=== PATIENT | female | born 1970 | race Caucasian/White ===

== ENCOUNTER 2023-11-03 09:00 | Outpatient (OUT) | payer OTHER, SELFPAY ==
[2023-11-03 09:32] LABS: Basophils Percent Auto 0.8 % (0.2-2.0); Eosinophils Absolute Auto 0.1 10^3/uL (0.0-0.7); Eosinophils Percent Auto 1.9 % (0.9-7.0); Hematocrit 43.6 % (36.0-48.0); Hemoglobin 14.5 g/dL (12.0-16.0); Immature Granulocytes Abs Auto 0.02 10^3/uL (0.00-0.03); Immature Granulocytes Pct Auto 0.4 % (0.0-0.5); Lymphocytes Absolute Auto 1.7 10^3/uL (1.2-3.8); Lymphocytes Percent Auto 31.2 % (20.5-60.0); Mean Corpuscular HGB Conc 33.3 g/dL (29.9-35.2); Mean Corpuscular Hemoglobin 31.1 pg (26.7-34.0); Mean Corpuscular Volume 93.6 fL (81.0-99.0); Mean Platelet Volume 10.6 fL (9.5-13.5); Monocytes Absolute Auto 0.5 10^3/uL (0.3-0.8); Monocytes Percent Auto 8.5 % (1.7-12.0); Neutrophils Percent Auto 57.2 % (43.0-75.0); Platelet Count 187 10^3/uL (150-450); Red Blood Count 4.66 10^6/uL (4.20-5.40); Red Cell Distribution Width 11.9 % (11.0-15.0); White Blood Count 5.3 10^3/uL (4.0-11.0)
[2023-11-03 10:19] LABS: Alanine Aminotransferase 21 U/L (14-59); Albumin Globulin Ratio 1.1; Alkaline Phosphatase 78 U/L (46-116); Anion Gap 13.7; Aspartate Amino Transferase 24 U/L (15-37); BUN Creatinine Ratio 29.6; Bilirubin Total 0.4 mg/dL (0.2-1.0); Calcium 9.4 mg/dL (8.5-10.1); Carbon Dioxide 28.7 mmol/L (21.0-32.0); Chloride 105 mmol/L (98-107); Chol HDL Ratio 2.2; Cholesterol 153 mg/dL (<=200); Estimated GFR (African America >60 (>=60); Estimated GFR (Non-African Ame >60 (>=60); Free T3 2.96 pg/mL (2.18-3.98); Globulin 3.6 g/dL; Glucose 74 mg/dL (74-106); HDL Cholesterol 68 mg/dL (40-60); Potassium 4.4 mmol/L (3.5-5.1); Sodium 143 mmol/L (136-145); Thyroid Stimulating Hormone 2.492 uIU/mL (0.358-3.740); Total Protein 7.6 g/dL (6.4-8.2); Triglycerides 58 mg/dL (<=150); VLDL CHOLESTEROL 11.6 mg/dL
--- NOTE | 2023-11-03 10:26 | MM_ITS ---
Patient Name: HENRIQUE MIMS MR#: [id number] : 1970 Exam Date: 11/03/2023 Ordering Doctor: DR Braxton Dillard . RADIOLOGY REPORT PROCEDURE: MM TOMOSYNTHESIS SCREENING BI COMPARISON: MG MAMM SCREEN 3D EULOGIO CAD, 05/13/2022. MG MAMM SCREEN 3D EULOGIO CAD, 04/05/2021. MG MAMM SCREEN EULOGIO W CAD, 06/15/2018. MG MAMM EULOGIO SCRN W CAD DIG, 12/31/2013. INDICATIONS: Screening Calculator Name NCI Breast Cancer Risk Assessment Tool 5 Year Breast Cancer Risk 1.20% Lifetime Breast Cancer Risk 8.50% Personal Breast Cancer No Personal Ovarian Cancer No Treatments None Family Cancers None LOCATION: [facility] BREAST COMPOSITION: The breasts are extremely dense, which lowers the sensitivity of mammography. FINDINGS: DIAGNOSTIC CATEGORY 1--NEGATIVE. RIGHT BREAST: No significant suspicious finding. No significant change has occurred. LEFT BREAST: No significant suspicious finding. No significant change has occurred. RECOMMENDATIONS: ROUTINE MAMMOGRAM AND CLINICAL EVALUATION IN 12 MONTHS. PLEASE NOTE: A NORMAL MAMMOGRAM DOES NOT EXCLUDE THE POSSIBILITY OF BREAST CANCER. A CLINICALLY SUSPICIOUS PALPABLE LUMP SHOULD BE BIOPSIED. Dictated by: Frank Lew M.D. on 11/03/2023 at 15:13 Approved by: Frank Lew M.D. on 11/03/2023 at 15:15
[2023-11-03 10:38] LABS: Estimated Average Glucose 108 mg/dL; Glycohemoglobin A1C 5.4 % (4.5-6.2)
[2023-11-05 14:07] LABS: Insulin 8.5 uIU/mL (2.6-24.9)
== END 2023-11-03 09:01 | disposition home or self-care (01) ==
LOC: MAMMO 09:00
PROVIDERS: PCP Family Medicine; Visit Provider Family Medicine
DX: Z00.00 Encounter for general adult medical examination without abnormal findings (principal); E78.5 Hyperlipidemia, unspecified; R73.09 Other abnormal glucose; Z12.31 Encounter for screening mammogram for malignant neoplasm of breast
CPT/HCPCS: 36415; 77063; 77067; 80053; 80061; 83036; 83525; 84436; 84443; 84481; 85025

== ENCOUNTER 2024-05-13 21:49 | Outpatient (REF) | payer OTHER, SELFPAY | END 2024-05-13 21:50 | disposition home or self-care (01) | LOC: LAB 21:49 | PROVIDERS: PCP Family Medicine; Visit Provider Obstetrics & Gynecology | DX: Z01.419 Encounter for gynecological examination (general) (routine) without abnormal findings (principal) | CPT/HCPCS: 87624; 88175 ==

== ENCOUNTER 2024-06-05 08:26 | Outpatient (OUT) | payer OTHER, SELFPAY ==
--- NOTE | 2024-06-05 08:28 | US_ITS ---
[address] [address] Patient Name: HENRIQUE MIMS MRN: [id number] date: 1970 Sex: F Assigned Patient Location: [facility] Current Patient Location: Accession/Order Number: [id number] Exam Date: 06/05/2024 08:28 Report Date: 06/06/2024 04:27 At the request of: KELIN RAWLS Procedure: US pelvis w/ transvaginal EXAMINATION: US pelvis w/ transvaginal HISTORY: UTERINE BLEEDING COMPARISON: No relevant comparison available. TECHNIQUE: Transabdominal and/or transvaginal sonographic examination was performed as indicated by examination type. FINDINGS: UTERUS: Normal size and appearance. Uterus size: 8.2 x 3.4 x 5.4 cm ENDOMETRIUM: Normal homogeneous appearance. Endometrial thickness: 5 mm RIGHT OVARY: Not seen. No suspicious adnexal findings. LEFT OVARY: Not seen. No suspicious adnexal findings. CUL-DE-SAC: Unremarkable. No significant free fluid. BLADDER: Unremarkable. OTHER: None. US/US pelvis w/ transvaginal IMPRESSION: 1. Unremarkable uterus and endometrium. 2. Neither ovary were seen. No suspicious adnexal findings. Electronically authenticated by: GHASSAN NEWTON Date: 06/06/2024 04:27
--- OUTSIDE RECORDS SUMMARY | 2024-06-05 08:49 | XMS_ITS | CCD ---
Author Organization [facility] Care Team Providers Care Paranormal Investigator Name Role Phone DR LIZ DILLARD Consulting Unavailable VISCI, DR SO Admitting Unavailable VISCI, DR SO Attending Unavailable DR LIZ DILLARD Primary Care Unavailable WEST, DR GENE Schmidt Consulting Unavailable Liz Dillard MD Primary Care Provider [phone] KELIN RAWLS Attending Unavailable KOLTON ORTEGA Attending Unavailable Medications Current Medications Medication Drug Class(es) Dates Sig (Normalized) Sig (Original) Collagen-Vitamin C-Biotin (Collagen 1500/C) 500-50-0.8 MG capsule (4 sources) Collagen-Vitamin C-Biotin (Collagen 1500/C) 500-50-0.8 MG capsule Collagen Active Multiple Vitamin (MULTIVITAMIN ADULT PO) (4 sources) Multiple Vitamin (MULTIVITAMIN ADULT PO) Multivitamin Adult Active Probiotic Product (PROBIOTIC BLEND PO) (4 sources) Probiotic Produc t (PROBIOTIC BLEND PO) Probiotic Active Completed/Discontinued Medications Medication Drug Class(es) Dates Sig (Normalized) Sig (Original) estradiol 0.5 mg oral tablet (3 sources) Estrogen Start: 11-29-2023 End: 05-13-2024 take 1 tablet by mouth once daily estradiol (Estrace) 0.5 MG tablet Indications: Follow-up encounter involving medication Take 1 tablet (0.5 mg) by mouth Daily for 30 doses 30 tablet 11 11/29/2023 05/13/2024 Discontinued (Therapy completed) Problems Problem Classification Problem Date Documented Date Episodic/Chronic Osteoporosis (2 sources) Postmenopausal osteoporosis; Translations: [Age-related osteoporosis without current pathological fracture] 05-13-2024 Chronic Other screening for suspected conditions (not mental disorders or infectious disease) (6 sources) Encounter for screening mammogram for malignant neoplasm of breast; Translations: [Patient encounter status] Onset: 05-13-2022 Episodic Results Test Name Value Interpretation Reference Range Facility IGP,APTIMA HPV,AGE GDLNon AGE GDLN ACOG TESTING Note . [facility] Comment on above: TESTS RESULT FLAG UN ITS REF RANGE LAB Clinician Provided Cytology Information Source.............Cervix;Endocervix No. of containers..01 ThinPrep Vial Age Algo ACOG Elvia... FLAG LEGEND: L-Low Normal,H-High Normal,LL-Alert Low,HH-Alert High <-Panic Low,>-Panic High,A-Abnormal,AA-Critical Abnormal Performed at: 01 =[address] [place] [address] Camila Casper MD, HPV APTIMA Negative Negative [facility] Comment on above: This nucleic acid am plification test detects fourteen high- risk HPV types (16,18,31,33,35,39,45,51,52,56,58,59,66,68) without differentiation. Performed at: =[address] [id number] Roving Hauler: Camila Casper MD, Phone: [phone] Performed at: [address] [id number] Roving Hauler: Camila Casper MD, Phone: [phone] IGP, APTIMA HPV, RFX 16/18,45 Note . [facility] Comment on above: TESTS RESULT FLAG UN ITS REF RANGE LAB DIAGNOSIS: 02 NEGATIVE FOR INTRAEPITHELIAL LESION OR MALIGNANCY. Specimen adequacy: 02 Satisfactory for evaluation. Endocervical and/or squamous metaplastic cells (endocervical component) are present. Performed by: 02 Minal Herrmann, Auto Air Conditioning Apprentice (ASCP) . 02 Note: Note 02 The Pap smear is a screening test designed to aid in the detection of premalignant and malignant conditions of the uterine cervix. It is not a diagnostic procedure and should not be used as the sole means of detecting cervical cancer. Both false-positive and false-negative reports do occur. Test Methodology: Note 02 This liquid based ThinPrep(R) pap test was screened with the use of an image guided system. HPV Genotype Reflex Note 02 Criteria not met, HPV Genotype not performed. FLAG LEGEND: L-Low Normal,H-High Normal,LL-Alert Low,HH-Alert High <-Panic Low,>-Panic High,A-Abnormal,AA-Critical Abnormal Performed at: [address] [address] Camila Casper MD, BRUSH-SPATULA CERVIX ENDOCERVIX [facility] Healthcar e MG MAMM SCREEN 3D EULOGIO CADon 05-13-2022 MG MAMM SCREEN 3D EULOGIO CAD Patient: GIOVANNA PEREZ Exam Date: 05/13/2022 : 1970 Gender:F Ordering : DR LIZ DILLARD . Admission #: [id number] Family : DR SARAY QUINTERO Order #: [id number] CLICK HERE TO VIEW EXAM RADIOLOGY REPORT PROCEDURE: MAMMOGRAM SCREENING 3D BILATERAL CAD COMPARISON: MG MAMM SCREEN EULOGIO W CAD, 06/15/2018. MG MAMM SCREEN 3D EULOGIO CAD, 04/05/2021. INDICATIONS: Screening mammography Calculator Name NCI Breast Cancer Risk Assessment Tool 5 Year Breast Cancer Risk 1.10% Lifetime Breast Cancer Risk 8.80% Personal Breast Cancer No Personal Ovarian Cancer No Treatments None Family Cancers None LOCATION: [facility] BREAST COMPOSITION: Extremely dense, which lowers the sensitivity of mammography. FINDINGS: DIAGNOSTIC CATEGORY 1--NEGATIVE. NO CHANGE FROM COMPARISON ASSESSMENT. Scattered benign-appearing calcifications are present. Scattered benign-appearing lymph nodes are present. RIGHT BREAST: No significant suspicious finding. LEFT BREAST: No significant suspicious finding. RECOMMENDATIONS: ROUTINE MAMMOGRAM AND CLINICAL EVALUATION IN 12 MONTHS. PLEASE NOTE: A NORMAL MAMMOGRAM DOES NOT EXCLUDE THE POSSIBILITY OF BREAST CANCER. A CLINICALLY SUSPICIOUS PALPABLE LUMP SHOULD BE BIOPSIED. Dictated by: Gene Cuello MD on 05/13/2022 at 11:37 Approved by: Gene Cuello MD on 05/13/2022 at 11:38 Normal [facility] Outside Colonoscopyon 2020 Outside Colonoscopy [id number] 0CD:127 Normal [facility] Lab Reportson 04-01-2021 Lab Reports [id number] 0CD:127 Normal [facility] Consent for Procedure/Surger yon 03-18-2021 Consent for Procedure/Surgery [id number] 0CD:127 Normal [facility] March 18, 2021 Liz Dillard, [address] [place] [address] [place] [address] Re: GIOVANNA PEREZ Date of : 1970 Thank you for your referral of Giovanna perez who was seen on consultation on Mar 16, 2021, for positive occult stool. Testing is planned for further evaluation. I have enclosed my consultation note for your review. I will be happy to follow Giovanna. Sincerely, Gomez Madsen MD General Surgery Normal [facility] Ambulatory Clinical Summaryo n 03-16-2021 Ambulatory Clinical Summary {[id number] }[id number] Normal [facility] Patient Educationon 03-16-20 21 Patient Education Radiology Colonoscopy, Adult, Care After This sheet gives you information about how to care for yourself after your procedure. Your health care provider may also give you more specific instructions. If you have problems or questions, contact your health care provider. What can I expect after the procedure? After the procedure, it is common to have: ? A small amount of blood in your stool for 24 hours after the procedure. ? Some gas. ? Mild abdominal cramping or bloating. Follow these instructions at home: General instructions ? For the first 24 hours after the procedure: ? Do not drive or use machinery. ? Do not sign important documents. ? Do not drink alcohol. ? Do your regular daily activities at a slower pace than normal. ? Eat soft, jvfk-by-qbbjdb foods. ? Take mqoh-mwf-uhsqhki or prescription medicines only as told by your health care provider. Relieving cramping and bloating ? Try walking around when you have cramps or feel bloated. ? Apply heat to your abdomen as told by your health care provider. Use a heat source that your health care provider recommends, such as a moist heat pack or a heating pad. ? Place a towel between your skin and the heat source. ? Leave the heat on for 20?30 minutes. ? Remove the heat if your skin turns bright red. This is especially important if you are unable to feel pain, heat, or cold. You may have a greater risk of getting burned. Eating and drinking ? Drink enough fluid to keep your urine pale yellow. ? Resume your normal diet as instructed by your health care provider. Avoid heavy or fried foods that are hard to digest. ? Avoid drinking alcohol for as long as instructed by your health care provider. Contact a health care provider if: ? You have blood in your stool 2?3 days after the procedure. Get help right away if: ? You have more than a small spotting of blood in your stool. ? You pass large blood clots in your stool. ? Your abdomen is swollen. ? You have nausea or vomiting. ? You have a fever. ? You have increasing abdominal pain that is not relieved with medicine. Summary ? After the procedure, it is common to have a small amount of blood in your stool. You may also have mild abdominal cramping and bloating. ? For the first 24 hours after the procedure, do not drive or use machinery, sign important documents, or drink alcohol. ? Contact your health care provider if you have a lot of blood in your stool, nausea or vomiting, a fever, or increased abdominal pain. This information is not intended to replace advice given to you by your health care provider. Make sure you discuss any questions you have with your health care provider. Document Released: 02/14/2005 Document Revised: 04/25/2018 Document Reviewed: 09/13/[address] Patient Education ? 2020 [employer] Colonoscopy, Adult A colonoscopy is an exam to look at the entire large intestine. During the exam, a lubricated, flexible tube that has a camera on the end of it is inserted into the anus and then passed into the rectum, colon, and other parts of the large intestine. You may have a colonoscopy as a part of normal colorectal screening or if you have certain symptoms, such as: ? Lack of red blood cells (anemia). ? Diarrhea that does not go away. ? Abdominal pain. ? Blood in your stool (feces). A colonoscopy can help screen for and diagnose medical problems, including: ? Tumors. ? Polyps. ? Inflammation. ? Areas of bleeding. Tell a health care provider about: ? Any allergies you have. ? All medicines you are taking, including vitamins, herbs, eye drops, creams, and cgqy-aky-qcvoaka medicines. ? Any problems you or family members have had with anesthetic medicines. ? Any blood disorders you have. ? Any surgeries you have had. ? Any medical conditions you have. ? Any problems you have had passing stool. What are the risks? Generally, this is a safe procedure. However, problems may occur, including: ? Bleeding. ? A tear in the intestine. ? A reaction to medicines given during the exam. ? Infection (rare). What happens before the procedure? Eating and drinking restrictions Follow instructions from your health care provider about eating and drinking, which may include: ? A few days before the procedure ? follow a low-fiber diet. Avoid nuts, seeds, dried fruit, raw fruits, and vegetables. ? 1?3 days before the procedure ? follow a clear liquid diet. Drink only clear liquids, such as clear broth or bouillon, black coffee or tea, clear juice, clear soft drinks or sports drinks, gelatin dessert, and popsicles. Avoid any liquids that contain red or purple dye. ? On the day of the procedure ? do not eat or drink anything starting 2 hours before the procedure, or within the time period that your health care provider recommends. Up to 2 hours before the procedure, you may continue to drink clear liquid (more content not included)... [place] Physician Referralon 021 Physician Referral [id number] CD:127 [place] Vital Signs Date Time Vital Sign Value Performing Clinician Whitney cardoso 05-13-2024 13:26-0400 Body mass index (BMI) [Ratio] 23.34 kg/m2 [employer] DO Work Phone: [facility] 05-13-2024 13:26-0400 Body weight 67.59 kg Kolton Shannon DO Work Phone: [facility] 05-13-2024 13:26-0400 Diastolic blood pressure 80 mm[Hg] KoltonTapFunder Work Phone: [facility] 05-13-2024 13:26-0400 Systolic blood pressure 130 mm[Hg] Kolton Shannon DO Work Phone: [facility] Healthcare Encounters Encounter Date Encounter Type Care Provider Facility Start: 05-13-2024 End: 05-13-2024 Bamboo flowsheet Kolton Shannon DO Work Phone: [facility] Start: 05-13-2024 End: 05-21-2024 Bamboo flowsheet Kolton Shannon DO Work Phone: [facility] Start: 05-13-2024 End: 05-21-2024 [facility] Result Encounter Kolton Ortega DO Work Phone: [facility] External Department Unsolicited Start: 05-13-2024 End: 05-13-2024 Patient encounter procedure Kolton Ortega DO Work Phone: [facility] Healthcare Start: 05-13-2024 End: 05-13-2024 Periodic preventive med est patient 40-64yrs Kolton Ortega DO Work Phone: [facility] Comment on above: Well woman exam with routine gynecological exam; Breast cancer screening by mammogram; Osteoporosis, post-menopausal (CMS/HCC) Start: 05-13-2024 End: 05-13-2024 ambulatory KOLTON ORTEGA Not Available Start: 11-29-2023 End: 11-29-2023 ambulatory KELIN RAWLS Not Available Start: 05-13-2022 End: 05-14-[address] LIZ DILLARD Facility:[facility]1 Procedures Date Procedure Procedure Detail Performing Clinician Start: 05-13-2024 IGP,APTIMA HPV,AGE GDLN Kolton Ortega DO Work Phone: Plan of Treatment Date Care Activity Detail Author Start: 05-13-2024 End: 05-13-2025 DXA Skeletal system Views for bone density DEXA bone density Imaging Routine Osteoporosis, post-menopausal (CMS/HCC) Expected: 05/13/2024 (Approximate), Expires: 05/13/2025 [facility] Comment on above: Expected: 05/13/2024 (Approximate), Expires: 05/13/2025 Start: 05-13-2024 End: 07-13-2025 MG Breast - bilateral Screening Bilateral screening mammogram Imaging Routine Breast cancer screening by mammogram Expected: 05/13/2024 (Approximate), Expires: 07/13/2025 [facility] Work Phone: Comment on above: Expected: 05/13/2024 (Approximate), Expires: 07/13/2025 Start: 05-13-2024 End: 05-13-2024 Patient encounter procedure 05/13/2024 1:00 PM EDT Office Visit [facility] [address] [place] [address] Kolton Ortega, DO [address] [place] [address] [place] [address] Arrived [facility] Comment on above: Arrived THIN PREP TIS PAP AN D HR HPV DNA THIN PREP TIS PAP AND HR HPV DNA Pathology and Cytology Routine Well woman exam with routine gynecological exam Ordered: 05/13/2024 [facility] Healthcare Comment on above: Ordered: 05/13/2024 Payers Date Payer Category Payer Private Health Insurance [employer] [id number] 1970 Unknown [id number] 1970 Unknown [id number] 1970 Unknown [id number] 1960 Unknown [id number] Social History Date Type Detail Facility [facility] Healthcare Start: 1970 Sex assigned at Not on file [facility] Gender identity Not on file [facility] Healthc are History of Present illness Narrative 05-13-2024 Tosha Cabral LPN - 05/13/2024 1:00 PM EDT Note Date & Type Note Facility 05-13-2024 History of Presen t illness Narrative Reason for Appointment: Patient ID: Giovanna Perez is a 53 y.o. female who presents for Gynecologic Exam Patient presents today for Annual Exam. MEDICATIONS Current Outpatient Medications Medication Instructions Collagen-Vitamin C-Biotin (Collagen 1500/C) 500-50-0.8 MG capsule Collagen Multiple Vitamin (MULTIVITAMIN ADULT PO) Multivitamin Adult Probiotic Product (PROBIOTIC BLEND PO) Probiotic ALLERGIES No Known Allergies PROBLEMS Active Ambulatory Problems Diagnosis Date Noted No Active Ambulatory Problems Resolved Ambulatory Problems Diagnosis Date Noted No Resolved Ambulatory Problems No Additional Past Medical History HISTORY PAST MEDICAL HISTORY SOCIAL HISTORY No past medical history on file. Social History Tobacco Use Smoking status: Not on file Smokeless tobacco: Not on file Substance Use Topics Alcohol use: Not on file Drug use: Not on file FAMILY HISTORY Family History Problem Relation Name Age of Onset Prostate cancer Brother Diabetes Other Hypertension Other SURGICAL HISTORY Past Surgical History: Procedure Laterality Date FOOT SURGERY REVIEW OF SYSTEMS Review of Systems: Review of Systems All other systems reviewed and are negative. OBJECTIVE Objective: Physical Exam Constitutional: Appearance: Normal appearance. She is well-developed. Genitourinary: Vulva normal. Breasts: Breasts are soft. Right: Normal. Left: Normal. Cardiovascular: Rate and Rhythm: Normal rate and regular rhythm. Pulmonary: Effort: Pulmonary effort is normal. Breath sounds: Normal breath sounds. Abdominal: General: Bowel sounds are normal. There is no distension. Palpations: Abdomen is soft. Tenderness: There is no abdominal tenderness. There is no guarding or rebound. Musculoskeletal: General: No swelling. Normal range of motion. Right lower leg: No edema. Left lower leg: No edema. Neurological: Mental Status: She is alert and oriented to person, place, and time. Skin: General: Skin is warm and dry. Psychiatric: Mood and Affect: Mood normal. Behavior: Behavior normal. Vitals and nursing note reviewed. Exam conducted with a extruder present. Vitals: Estimated body mass index is 23.34 kg/m as calculated from the following: Height as of 11/29/23: 5' 7 . Weight as of this encounter: 149 lb. BP: 130/80 No LMP recorded. Patient is postmenopausal. ASSESSMENT & PLAN ICD-10-CM 1. Well woman exam with routine gynecological exam Z01.419 THIN PREP TIS PAP AND HR HPV DNA 2. Breast cancer screening by mammogram Z12.31 Bilateral screening mammogram Bilateral screening mammogram 3. Osteoporosis, post-menopausal (CMS/HCC) M81.0 DEXA bone density Annual: Patient presents today for an annual exam. Patient states she is doing well and has no complaints. Pap was obtained without difficulty and patient given mammogram order and DEXA Scan order to have scheduled/obtained. Patient voiced she was having labs drawn through [facility] and she had pellets inserted. Patient will call office and inform PA what pellets were used. Orders Placed This Encounter Procedures Bilateral screening mammogram DEXA bone density Follow Up: Patient is to return in one year for annual unless needed otherwise. Documented by Tosha Cabral LPN on behalf of: Kolton Ortega DO documented in this encounter [facility] Clinical Note 03-16-2021 Note Date & Type Note Facility 03-16-2021 Note Chief Complaint referral for positive occult stool HPI Staff 50 year old female presents on consultation from Dr. Dillard for positive occult stool. Denies abdominal or rectal pain. No rectal bleeding. No change in bowel habits. No unintentional weight loss. No known family history of colon cancer. Previous colonoscopy completed 10-15 years ago for IBS, reported normal per patient. History of Present Illness 50 yo female referred for positive fecal occult blood; denies change in bms or gross blood in stools, no abdominal complaints; remote colonoscopy over 10 years ago, reportedly wnl; no previous abdominal operations; no asa or NSAID use, no SBE prophylaxis; no fmhx of GI malignancy or IBD. Review of Systems PHQ Score Initial Depression Screen Score: 0 ROS - Provider Constitutional: no fever, no sweats, no weight loss. Eyes: no glasses, no blurred vision, no visual loss. ENMT: no dentures, no hoarseness, no swallowing difficulties, no hearing loss, no ear infection(s), no nose bleeds. Cardiovascular: normal blood pressure, no chest pain, regular heartbeat, no heart murmur. Respiratory: no shortness of breath, no cough, no asthma, no wheezing. Gastrointestinal: no nausea, no vomiting, no diarrhea, no constipation, no blood in stool, no change in bowel habits, no abdominal pain, no hepatitis. Genitourinary: no kidney stones, no urine infection, no dysuria. Musculoskeletal: no pain, no weakness. Skin: no changing moles, no rash, no skin lumps. Neurologic: no seizures, no epilepsy, no headache. Psychiatric: no emotional or psychiatric problem. Heme/Lymph: no bleeding problems, no anemia, no blood clots, no transfusions. Allergy/Immunologic: no swollen lymph nodes/glands, no IV drug abuse. Other: Additional ROS info: Except as noted in the above Review of Systems and in the History of Present Illness, all other systems have been reviewed and are negative or noncontributory. Physical Exam Vitals & Measurements T: 36.6 ?C (Temporal Artery) HR: 72(Peripheral) RR: 16 BP: 130/96 HT: 170.18 cm HT: 170.2 cm WT: 67.9 kg WT: 67.9 kg BMI: 23.45 HEENT: normal conjunctiva, sclera clear, no scleral icterus, EOM intact, PERRLA, oral mucosa moist without lesions. Neck: trachea midline, no mass, symmetric, no thyromegaly or nodules, no adenopathy Respiratory: lungs CTA, respirations non labored. Cardiovascular: regular rate and rhythm, no murmur, no pedal edema or varicosities. Gastrointestinal: soft, non distended, no tenderness, no masses, no palpable hernias, diastasis recti no, no hepatosplenomegaly; normal bs Lymphatic: no cervical adenopathy, Musculoskeletal: normal gait, digits and nails without infection, nodes, cyanosis, clubbing. Skin: no rashes, no lesions, no ulcers, no subcutaneous nodules, induration. Psychiatric/Neuro: oriented to time, place, person, judgement normal, affect appropriate for age, insight intact, no focal deficits. Tests: labs reviewed, x-rays reviewed, review of old records completed, Discussed surgical options, risks, and possible complications with patient. Assessment/Plan 1. Positive fecal occult blood test (R19.5: Other fecal abnormalities) plan colonoscopy under anesthesia for further evaluation, informed consent obtained. Follow-up No qualifying data available Patient Education Colonoscopy, Adult, Care After Colonoscopy, Adult Problem List/Past Medical History Ongoing BMI 23.0-23.9, adult Positive fecal occult blood test Historical No qualifying data Procedure/Surgical History Cheilectomy (07/20/2018). Medications Acidophilus Probiotic Blend, 1 cap(s), Oral, Daily cetirizine 10 mg Tab, 10 mg= 1 tab(s), Oral, Daily Multivitamins and Minerals, 1 tab(s), Oral, Daily Allergies No Known Allergies No Known Medication Allergies Social History Alcohol - Denies Alcohol Use, 03/16/2021 Substance Abuse - Denies Substance Abuse, 03/16/2021 Tobacco Never (less than 100 in lifetime) Tobacco Use:. Never Smokeless Tobacco Use:., 03/16/2021 Family History Dementia: Father. Diabetes mellitus type 2: Sister and Brother. Hypertension: Mother, Sister and Brother. [facility] Comment on above: Result Comment: Elec tronically Signed By: MARINE LEW, Gomez Aguero\Date and Time Signed: 03/16/21 13:36 EDT Evaluation note Note Date & Type Note Facility Evaluation note Diagnosis Well woman exam with routine gynecological exam Routine gynecological examination Breast cancer screening by mammogram Osteoporosis, post-menopausal (CMS/HCC) Senile osteoporosis documented in this encounter [facility] Summary Purpose Family History No Family History Records FoundNo Family History Records FoundNo Family History Records Found Advance Directives No Advanced Directives Records FoundNo Advanced Directives Records FoundNo Advanced Directives Records Found Additional Source Comments INFORMATION SOURCE (unrecogn ized section and content) DATE CREATED AUTHOR 04/07/2021 [facility] DATE CREATED AUTHOR AUTHOR'S ORGANIZ ATION 05/18/2022 [facility] DATE CREATED AUTHOR AUTHOR'S ORGANIZ ATION 05/14/2024 [facility] dical Specialists EPIC Care Teams (unrecognized sec tion and content) Paranormal Investigator Relationship Specialty Start Date End Date Liz Dillard MD [address] [place] [address] PCP - General Family Medicine 10/30/23 Paranormal Investigator Relationship Specialty Start Date End Date Liz Dillard MD [address] [place] [address] PCP - General Family Medicine 10/30/23 Paranormal Investigator Relationship Specialty Start Date End Date Liz Dillard MD [address] [place] [address] PCP - General Family Medicine 10/30/23 Reason for Visit (unrecogniz ed section and content) Reason Comments Gynecologic Exam FOR RECORDS PERTAINING TO PATIENTS WHO ARE OR HAVE BEEN ENROLLED IN A CHEMICAL DEPENDENCY/SUBSTANCEABUSE PROGRAM, SOME INFORMATION MAY BE OMITTED. This clinical summary was aggregated from multiple sources. Caution should be exercised in using it in the provision of clinical care. This summary normalizes information from multiple sources, and as a consequence, information in this document may materially change the coding, format and clinical context of patient data. In addition, data may be omitted in some cases. CLINICAL DECISIONS SHOULD BE BASED ON THE PRIMARY CLINICAL RECORDS. [facility] [employer] [facility]. provides no warranty or guarantee of the accuracy or completeness of information in this document.
== END 2024-06-05 08:27 | disposition home or self-care (01) ==
LOC: NOMS 08:27
PROVIDERS: PCP Family Medicine; Visit Provider Physician Assistant
DX: N93.9 Abnormal uterine and vaginal bleeding, unspecified (principal)
CPT/HCPCS: 76830; 76856

== ENCOUNTER 2024-07-29 10:21 | Outpatient (REF) | payer OTHER, SELFPAY ==
--- OUTSIDE RECORDS SUMMARY | 2024-08-02 10:28 | XMS_ITS | CCD ---
Author Organization [facility] Care Team Providers Care Outreach And Education Social Worker Name Role Phone DR LIZ DILLARD Consulting Unavailable VISCJenny, DR SO Admitting Unavailable VISCJenny, DR SO Attending Unavailable DR LIZ DILLARD Primary Care Unavailable CLIO, DR GENE Schmidt Consulting Unavailable Liz Dillard MD Primary Care Provider [phone] Kolton Ortega DO Attending Provider Liz Dillard MD Primary Care Provider [phone] KELIN RAWLS Attending Unavailable KOLTON ORTEGA Attending Unavailable KOLTON ORTEGA Attending Unavailable KOLTON ORTEGA Attending Unavailable Medications Current Medications Medication Drug Class(es) Dates Sig (Normalized) Sig (Original) Collagen-Vitamin C-Biotin (Collagen 1500/C) 500-50-0.8 MG capsule (8 sources) Collagen-Vitamin C-Biotin (Collagen 1500/C) 500-50-0.8 MG capsule Collagen Active Multiple Vitamin (MULTIVITAMIN ADULT PO) (8 sources) Multiple Vitamin (MULTIVITAMIN ADULT PO) Multivitamin Adult Active Completed/Discontinued Medications Medication Drug Class(es) Dates Sig (Normalized) Sig (Original) estradiol 0.5 mg oral tablet (3 sources) Estrogen Start: 11-29-2023 End: 05-13-2024 take 1 tablet by mouth once daily estradiol (Estrace) 0.5 MG tablet Indications: Follow-up encounter involving medication Take 1 tablet (0.5 mg) by mouth Daily for 30 doses 30 tablet 11 11/29/2023 05/13/2024 Discontinued (Therapy completed) Probiotic Product (PROBIOTIC BLEND PO) (8 sources) End: 07-29-2024 Probiotic Product (PROBIOTIC BLEND PO) Probiotic 07/29/2024 Discontinued (Other) Probiotic Produc t (PROBIOTIC BLEND PO) Probiotic Active Problems Problem Classification Problem Date Documented Date Episodic/Chronic Administrative/social admission (2 sources) Patient encounter status; Translations: [Person consulting for explanation of examination or test findings] 06-10-2024 Episodic Osteoporosis (2 sources) Postmenopausal osteoporosis; Translations: [Age-related osteoporosis without current pathological fracture] 05-13-2024 Chronic Other female genital disorders (3 sources) Abnormal uterine bleeding; Translations: [Other specified abnormal uterine and vaginal bleeding] 06-10-2024 Chronic Other screening for suspected conditions (not mental disorders or infectious disease) (6 sources) Encounter for screening mammogram for malignant neoplasm of breast; Translations: [Patient encounter status] Onset: 05-13-2022 Episodic Results Test Name Value Interpretation Reference Range Facility Biopsy endometriumon 025 Tosha Cabral LPN 07/29/2024 2:18 PM Biopsy endometrium Date/Time: 07/29/2024 12:40 PM Performed by: Kolton Ortega DO Authorized by: Kolton Ortega DO Consent: Consent obtained: written Consent given by: patient Patient agrees, verbalizes understanding, and wants to proceed: yes Indications: Indications: abnormal uterine bleeding Procedure: A bimanual exam was performed: no Prepped with: none Tenaculum used: yes A local block was performed: no Local anesthetic: none Cervix dilated: yes Findings: Cervix: normal Specimen collected: specimen collected and sent to pathology Patient tolerance: tolerated well, no immediate complications [facility] e HCG ( test) Ql (U)O rdered By: Jaymie Hatch on 07-29-2024 Interpretation and review of laboratory results Normal [facility] [employer] Work Phone: Preg Test, Ur Negative Negative [facility] [employer] [facility] Work Phone: [employer] Work Phone: IGP,APTIMA HPV,AGE GDLNon AGE GDLN ACOG TESTING Note . [facility] Comment on above: TESTS RESULT FLAG UN ITS REF RANGE LAB Clinician Provided Cytology Information Source.............Cervix;Endocervix No. of containers..01 ThinPrep Vial Age Julia LASSITER Elvia... 29 FLAG LEGEND: L-Low Normal,H-High Normal,LL-Alert Low,HH-Alert High <-Panic Low,>-Panic High,A-Abnormal,AA-Critical Abnormal Performed at: 01 [address] [address] Camila Casper MD, HPV APTIMA Negative Negative [facility] Comment on above: This nucleic acid am plification test detects fourteen high- risk HPV types (16,18,31,33,35,39,45,51,52,56,58,59,66,68) without differentiation. Performed at: =[address] [id number] Mechanical Field Engineer: Camila Casper MD, Phone: [phone] Performed at: [address] [id number] Mechanical Field Engineer: Camila Casper MD, Phone: [phone] IGP, APTIMA HPV, RFX 16/18,45 Note . [facility] Comment on above: TESTS RESULT FLAG UN ITS REF RANGE LAB DIAGNOSIS: 02 NEGATIVE FOR INTRAEPITHELIAL LESION OR MALIGNANCY. Specimen adequacy: 02 Satisfactory for evaluation. Endocervical and/or squamous metaplastic cells (endocervical component) are present. Performed by: 02 Minal Herrmann, Exhibits Manager (ASC) . 02 Note: Note 02 The Pap [...] <-Panic Low,>-Panic High,A-Abnormal,AA-Critical Abnormal Performed at: [address] [address] Camila Casper MD, BRUSH-SPATULA CERVIX ENDOCERVIX [facility] MAMM SCREEN 3D EULOGIO CADon 05-13-2022 MG MAMM SCREEN 3D EULOGIO CAD Patient: GIOVANNA PEREZ Exam Date: 05/13/2022 : 1970 Gender:F Ordering : DR LIZ DILLARD . Admission #: [id number] Family : DR ASRAY QUINTERO Order #: [id number] CLICK HERE TO VIEW EXAM RADIOLOGY REPORT [...] Treatments None Family Cancers None LOCATION: [facility] BREAST COMPOSITION: Extremely dense, which lowers the [...] Cuello MD on 05/13/2022 at 11:38 Normal [facility] Outside Colonoscopyon 2020 Outside Colonoscopy [id number] .[id number]:127 [facility] Lab Reportson 04-01-2021 Lab Reports [id number] .[id number]:127 [facility] Consent for Procedure/Surger yon 03-18-2021 Consent for Procedure/Surgery [id number] .[id number]:127 [facility] Provider Letter FTon 03-18 Provider Letter [facility] [place] Liz Dillard, [facility] [place] [address] Re: GIOVANNA PEREZ Date of : 1970 Thank you for your referral of Giovanna perez who was seen on consultation on Mar 16, 2021, for positive occult stool. Testing is planned for further evaluation. I have enclosed my consultation note for your review. I will be happy to follow Giovanna. Sincerely, Gomez Madsen MD General Surgery [facility] Ambulatory Clinical Summaryo n 03-16-2021 Ambulatory Clinical Summary {[id number]}CD:[id number] [facility] Patient Educationon 03-16-20 Patient Education Radiology Colonoscopy, Adult, Care After [...] slower pace than normal. ? Eat soft, sfkv-sy-hjfsfn foods. ? Take xhfc-lut-xzqtosx or prescription medicines only as told by [...] 02/14/2005 Document Revised: 04/25/2018 Document Reviewed: 09/13/2016 [employer] Patient Education ? 2020 [employer] Colonoscopy, Adult A colonoscopy is an [...] including vitamins, herbs, eye drops, creams, and phwq-ztf-wpvlvos medicines. ? Any problems you or family [...] drink clear liquid (more content not included)... [facility] Physician Referralon 021 Physician Referral [id number]:127 [facility] Vital Signs Date Time Vital Sign Value Performing Clinician Faci lity 07-29-2024 12:01-0500 Body mass index (BMI) [Ratio] 23.93 kg/m2 Kolton Shannon DO Work Phone: [facility] 07-29-2024 12:01-0500 Body weight 69.31 kg Kolton Shannon DO Work Phone: [facility] 07-29-2024 12:01-0500 Diastolic blood pressure 78 mm[Hg] Kolton Shannon DO Work Phone: [facility] 07-29-2024 12:01-0500 Systolic blood pressure 124 mm[Hg] Kolton Shannon DO Work Phone: [facility] 05-13-2024 13:26-0400 Body mass index (BMI) [Ratio] 23.34 kg/m2 Kolton Shannon DO Work Phone: [facility] 05-13-2024 13:26-0400 Body weight 67.59 kg Kolton Shannon DO Work Phone: [facility] 05-13-2024 13:26-0400 Diastolic blood pressure 80 mm[Hg] Kolton Shannon DO Work Phone: [facility] 05-13-2024 13:26-0400 Systolic blood pressure 130 mm[Hg] Kolton Shannon DO Work Phone: [facility] Healthcare Encounters Encounter Date Encounter Type Care Provider Facility Start: 07-29-2024 End: 07-29-2024 Departed Referred Liz Dillard MD Work Phone: [facility] [place] Work Phone: Start: 07-29-2024 End: 07-29-2024 Patient encounter procedure Kolton Shannon DO Work Phone: [facility] Comment on above: Dysfunctional uterin e bleeding Start: 07-29-2024 End: 07-29-2024 ambulatory Liz Dillard MD Work Phone: [facility] Work Phone: Start: 06-10-2024 End: 06-10-2024 Office outpatient visit 15 minutes Kolton Shannon DO Work Phone: [facility] Comment on above: Encounter to discuss test results; Dysfunctional uterine bleeding Start: 06-10-2024 End: 06-10-2024 ambulatory KOLTON SHANNON Not Available Start: 06-10-2024 End: 06-10-2024 Bamboo flowsheet Kolton Shannon DO Work Phone: [facility] Start: 06-10-2024 End: 06-10-2024 Bamboo flowsheet Kolton Shannon DO Work Phone: [facility] Start: 05-13-2024 End: 05-13-2024 Bamboo flowsheet Kolton Shannon DO Work Phone: [facility] Start: 05-13-2024 End: 05-21-2024 Bamboo flowsheet Kolton Shannon DO Work Phone: [facility] Start: 05-13-2024 End: 05-21-2024 Clinisync Result Encounter Kolton Shannon DO Work Phone: [facility] Unsolicited Start: 05-13-2024 End: 05-13-2024 Patient encounter procedure Kolton Shannon DO Work Phone: [facility] Start: 05-13-2024 End: 05-13-2024 Periodic preventive med est patient 40-64yrs Kolton Shannon DO Work Phone: [facility] Comment on above: Well woman exam with routine gynecological exam; Breast cancer screening by mammogram; Osteoporosis, post-menopausal ([facility]) Start: 05-13-2024 End: 05-13-2024 ambulatory KOLTON SHANNON Not Available Start: 11-29-2023 End: 11-29-2023 ambulatory KELIN RAWLS Not Available Start: 05-13-2022 End: 05-14-[address] LIZ DILLARD Facility: Procedures Date Procedure Procedure Detail Performing Clinician Start: 07-29-2024 ENDOMETRIAL BIOPSY Core y Shannon DO Work Phone: Start: 07-29-2024 Urine test visual color cmprsn meths Kolton Shannon DO Work Phone: Start: 05-13-2024 IGP,APTIMA HPV,AGE GDLN Kolton Shannon DO Work Phone: Plan of Treatment Date Care Activity Detail Author Start: 07-29-2024 End: 07-29-2024 Patient encounter procedure 07/29/2024 11:30 AM EST Procedure Visit [facility] [address] [place] [id number] Kolton Ortega, DO [address] [place] [address] [facility] Start: 06-10-2024 End: 06-10-2024 Patient encounter procedure 06/10/2024 3:00 PM EST Office Visit [facility] [address] [place] [place] [phone] Kolton Ortega, DO [address] [place] [address] Arrived [facility] Comment on above: Arrived Start: 05-13-2024 End: 05-13-2025 DXA Skeletal system Views for bone density DEXA bone density Imaging Routine Osteoporosis, post-menopausal ([facility]) Expected: 05/13/2024 (Approximate), Expires: 05/13/2025 [facility] Comment on above: Expected: 05/13/2024 (Approximate), Expires: 05/13/2025 Start: 05-13-2024 End: 07-13-2025 MG Breast - bilateral Screening Bilateral screening mammogram Imaging Routine Breast cancer screening by mammogram Expected: 05/13/2024 (Approximate), Expires: 07/13/2025 [facility] Work Phone: Comment on above: Expected: 05/13/2024 (Approximate), Expires: 07/13/2025 Start: 05-13-2024 End: 05-13-2024 Patient encounter procedure 05/13/2024 1:00 PM EDT Office Visit [facility] [address] [place] [place] [address] Kolton Ortega DO [address] [place], [place] [id number] Arrived [facility] Comment on above: Arrived THIN PREP TIS PAP AN D HR HPV DNA THIN PREP TIS PAP AND HR HPV DNA Pathology and Cytology Routine Well woman exam with routine gynecological exam Ordered: 05/13/2024 [facility] Comment on above: Ordered: 05/13/2024 Payers Date Payer Category Payer Private Health Insurance [facility] ARE [id number] 1970 Unknown [id number] 1970 Unknown [id number] 1970 Unknown [id number] 1970 Unknown [id number] 1970 Unknown [id number] 1960 Unknown [id number] Social History Date Type Detail Facility Tobacco smoking status NHIS Tobacco smoking consumption unknown [facility] Start: 1970 Sex assigned at Not on file [facility] Gender identity Not on file [facility] Start: 07-31-2024 Sex Female (finding) [facility] Start: 1970 Sex Assigned At Female F [facility] History of Present illness Narrative 07-29-2024 Tosha Cabral LPN - 07/29/2024 11:30 AM EST Note Date & Type Note Facility 07-29-2024 History of Presen t illness Narrative Associated Order(s): Biopsy endometrium Pre-Procedure Diagnose(s): Dysfunctional uterine bleeding Post-Procedure Diagnose(s): Dysfunctional uterine bleeding Reason for Appointment: Patient ID: Giovanna Perez is a 53 y.o. female who presents for Endometrial Biopsy Patient presents today for a Endometrial Biopsy appointment. MEDICATIONS Current Outpatient Medications Medication Instructions Collagen-Vitamin C-Biotin (Collagen 1500/C) 500-50-0.8 MG capsule Collagen Multiple Vitamin (MULTIVITAMIN ADULT PO) Multivitamin Adult ALLERGIES No Known Allergies SURGICAL HISTORY Past Surgical History: Procedure Laterality Date FOOT SURGERY REVIEW OF SYSTEMS Review of Systems: Review of Systems Genitourinary: Positive for vaginal bleeding. All other systems reviewed and are negative. OBJECTIVE Objective: Physical Exam Constitutional: Appearance: Normal appearance. She is well-developed. Genitourinary: Vulva normal. Cardiovascular: Rate and Rhythm: Normal rate and [...] nursing note reviewed. Exam conducted with a earthmoving plant operator present. Vitals: Estimated body mass index is 23.93 kg/m as calculated from the following: Height as of 24: 5' 7 . Weight as of this encounter: 152 lb 12.8 oz. BP: 124/78 No LMP recorded. Patient is postmenopausal. ASSESSMENT & PLAN Assessment/Plan Encounter Diagnosis: ICD-10-CM 1. Dysfunctional uterine bleeding N93.8 Biopsy endometrium POCT , urine manually resulted Biopsy endometrium Date/Time: 07/29/2024 12:40 PM Performed by: Kolton Ortega DO Authorized by: Kolton Ortega DO Consent: Consent obtained: written Consent given by: patient Patient agrees, verbalizes understanding, and wants to proceed: yes Indications: Indications: abnormal uterine bleeding Procedure: A bimanual exam was performed: no Prepped with: none Tenaculum used: yes A local block was performed: no Local anesthetic: none Cervix dilated: yes Findings: Cervix: normal Specimen collected: specimen collected and sent to pathology Patient tolerance: tolerated well, no immediate complications EMBX: Patient was placed in dorsal lithotomy position with feet in stirrups. A sterile speculum was placed into the vagina and the cervix was visualized. The cervix was grasped with a single tooth tenaculum. The endometrial pipette was placed through the cervix into the uterus, endometrial curettage was performed and sampling was obtained, endometrial curettings were placed in formalin, and single tooth tenaculum was removed. Excellent hemostasis was assured. All instruments were removed from vagina. Follow Up: Patient is to return to clinic as directed and also for routine Pap appointment. Documented by Tosha Cabral LPN on behalf of: Kolton Ortega DO documented in this encounter [facility] History of Present illness Narrative 06-10-2024 Kolton Ortega DO - 06/10/2024 3:00 PM EST Note Date & Type Note Facility 06-10-2024 History of Presen t illness Narrative Reason for Appointment: Patient ID: Giovanna Perez is a 53 y.o. female who presents for Follow-up (Pt present today for a f/up visit to discuss US results. (Uterine bleeding)) Patient presents today for Acute Visit. Current Medications: has a current medication list which includes the following prescription(s): collagen 1500/c, multiple vitamin, and probiotic product. Medical History: Active Ambulatory Problems Diagnosis Date Noted No Active Ambulatory Problems Resolved Ambulatory Problems Diagnosis Date Noted No Resolved Ambulatory Problems No Additional Past Medical History Family History Problem Relation Name Age of Onset Prostate cancer Brother Diabetes Other Hypertension Other Social History Tobacco Use Smoking status: Not on file Smokeless tobacco: Not on file Substance Use Topics Alcohol use: Not on file Drug use: Not on file Past Surgical History: Procedure Laterality Date FOOT SURGERY No Known Allergies Review of Systems: Review of Systems All other systems reviewed and are negative. Objective Physical Exam Constitutional: Appearance: Normal appearance. She is well-developed. Cardiovascular: Rate and Rhythm: Normal rate and [...] nursing note reviewed. Exam conducted with a earthmoving plant operator present. Vitals: Estimated body mass index is 23.34 kg/m as calculated from the following: Height as of 11/29/23: 5' 7 . Weight as of 05/13/24: 149 lb. BP: No LMP recorded. Patient is postmenopausal. Assessment/Plan Encounter Diagnosis: ICD-10-CM 1. Encounter to discuss test results Z71.2 2. Dysfunctional uterine bleeding N93.8 Reviewed us and labs, discussed embx vs d&c hysteroscopy, discussed repeating us in future, pt elects to have embx, discussed estrogen and progesterone and not to do unopposed Documented by Kolton Ortega DO on behalf of: Kolton Ortega DO documented in this encounter [facility] History of Present illness Narrative 05-13-2024 Tosha [...] nursing note reviewed. Exam conducted with a earthmoving plant operator present. Vitals: Estimated body mass index is [...] mammogram Bilateral screening mammogram 3. Osteoporosis, post-menopausal ([facility]) M81.0 DEXA bone density Annual: Patient presents [...] Kolton Ortega DO documented in this encounter [facility] Clinical Note 03-16-2021 Note Date & Type [...] and Brother. Hypertension: Mother, Sister and Brother. [facility] Comment on above: Result Comment: Elec tronically Signed By: MARINE LEW, Gomez Aguero\Date and Time Signed: 03/16/21 13:36 EDT Evaluation note Note Date & Type Note Facility Evaluation note Diagnosis Well woman exam with routine gynecological exam Routine gynecological examination Breast cancer screening by mammogram Osteoporosis, post-menopausal ([facility]) Senile osteoporosis documented in this encounter [facility] Evaluation note Note Date & Type Note Facility Evaluation note Diagnosis Encounter to discuss test results Other specified counseling Dysfunctional uterine bleeding Other disorder of menstruation and other abnormal bleeding from female genital tract documented in this encounter [facility] Evaluation note Note Date & Type Note Facility Evaluation note Diagnosis Dysfunctional uterine bleeding Other disorder of menstruation and other abnormal bleeding from female genital tract documented in this encounter [facility] Evaluation note Note Date & Type Note Facility Evaluation note No assessment information availa [facility] Work Phone: Summary Purpose Family History No Family History Records FoundNo Family History Records FoundNo Family History Records Found Advance Directives No Advanced Directives Records Found Advance Directive Response Recorded Date/ Time Advance Directives No July 30, 2024 3:51pm Chief Complaint and Reason for Visit Chief Complaint Admit Date endo biopsy July 29, 2024 1 2:00pm Additional Source Comments INFORMATION SOURCE (unrecogn ized section and content) DATE CREATED AUTHOR 04/07/2021 [facility] DATE CREATED AUTHOR AUTHOR'S ORGANIZ ATION 05/18/2022 [facility] pital DATE CREATED AUTHOR AUTHOR'S ORGANIZ ATION 2024 [facility] dical Specialists [facility] Care Teams (unrecognized sec tion and content) Outreach And Education Social Worker Relationship Specialty Start Date End Date Liz Dillard MD [address] [place] [address] PCP - General Family Medicine 10/30/23 Outreach And Education Social Worker Relationship Specialty Start Date End Date Liz Dillard MD [address] [place] [address] PCP - General Family Medicine 10/30/23 Outreach And Education Social Worker Relationship Specialty Start Date End Date Liz Dillard MD [address] [place] [address] PCP - General Family Medicine 10/30/23 Outreach And Education Social Worker Relationship Specialty Start Date End Date Liz Dillard MD [address] [place] [address] PCP - General Family Medicine 10/30/23 Outreach And Education Social Worker Relationship Specialty Start Date End Date Liz Dillard MD [address] [place] [address] PCP - General Family Medicine 10/30/23 Outreach And Education Social Worker Relationship Specialty Start Date End Date Liz Dillard MD [address] [place] [address] PCP - General Family Medicine 10/30/23 Team Status: Active Member Role Status Dates Liz Dillard MD Primary Care Provider Active Team Status: Inactive Member Role Status Dates Kolton Ortega DO Attending Provider Active Start : July 29, 2024 End: July 29, 2024 Liz Dillard MD Primary Care Provider Active Start: July 29, 2024 End: July 29, 2024 Reason for Visit (unrecogniz ed section and content) Reason Comments Gynecologic Exam Reason Comments Follow-up Pt present today for a f/up visit to discuss US results. (Uterine bleeding) Reason Comments Endometrial Biopsy Goals (unrecognized section and content) Goals may be documented in a n alternate section FOR RECORDS PERTAINING TO PATIENTS WHO ARE [...] BE BASED ON THE PRIMARY CLINICAL RECORDS. [employer] provides no warranty or guarantee of the accuracy or completeness of information in this document.
== END 2024-07-29 10:22 | disposition home or self-care (01) ==
LOC: LAB 10:21
PROVIDERS: PCP Family Medicine; Visit Provider Obstetrics & Gynecology
DX: N93.9 Abnormal uterine and vaginal bleeding, unspecified (principal)
CPT/HCPCS: 88305

== ENCOUNTER 2025-02-17 10:12 | Outpatient (OUT) | payer OTHER, SELFPAY ==
--- NOTE | 2025-02-17 10:18 | MM_ITS ---
Patient Name: HENRIQUE MIMS MR#: [id number] : 1970 Exam Date: 02/17/2025 Ordering Doctor: DR KOLTON JEFFERSON . RADIOLOGY REPORT PROCEDURE: MM TOMOSYNTHESIS SCREENING BI COMPARISON: MM TOMOSYNTHESIS SCREENING BI, 11/03/2023. MG MAMM SCREEN 3D EULOGIO CAD, 05/13/2022. MG MAMM SCREEN 3D EULOGIO CAD, 04/05/2021. MG MAMM EULOGIO SCRN W CAD DIG, 12/31/2013. INDICATIONS: Screening Calculator Name NCI Breast Cancer Risk Assessment Tool 5 Year Breast Cancer Risk 1.20% Lifetime Breast Cancer Risk 8.30% Personal Breast Cancer No Personal Ovarian Cancer No Treatments None Family Cancers None LOCATION: [facility] BREAST COMPOSITION: The breasts are heterogeneously dense, which may obscure small masses. FINDINGS: DIAGNOSTIC CATEGORY 1--NEGATIVE. RIGHT BREAST: No significant suspicious finding. LEFT BREAST: No significant suspicious finding. RECOMMENDATIONS: ROUTINE MAMMOGRAM AND CLINICAL EVALUATION IN 12 MONTHS. PLEASE NOTE: A NORMAL MAMMOGRAM DOES NOT EXCLUDE THE POSSIBILITY OF BREAST CANCER. A CLINICALLY SUSPICIOUS PALPABLE LUMP SHOULD BE BIOPSIED. Dictated by: Ministerio Ambriz DO on 02/17/2025 at 15:25 Approved by: Ministerio Ambriz DO on 02/17/2025 at 15:27
--- OUTSIDE RECORDS SUMMARY | 2025-02-17 10:29 | XMS_ITS | CCD ---
Author Organization [facility] Care Team Providers Care Brim Edge Trimmer Name Role Phone DR LIZ DILLARD Consulting Unavailable LEON, DR SO Admitting Unavailable VISCJenny, DR SO Attending Unavailable SILVANA, DR HILL Primary Care Unavailable RANDOLPH, DR GENE Schmidt Consulting Unavailable Liz Dillard MD Primary Care Provider [phone] Kolton Ortega DO Attending Provider [phone] Liz Dillard MD Primary Care Provider [phone] KELIN RAWLS Attending Unavailable KOLTON ORTEGA Attending Unavailable KOLTON ORTEGA Attending Unavailable KOLTON ORTEGA Attending Unavailable Liz Dillard Primary Care Unavailable Kolton Ortega Attending Unavailable Kolton Ortega Admitting Unavailable Medications Current Medications Medication Drug Class(es) [...] uterine and vaginal bleeding] 06-10-2024 Chronic Other female genital disorders (1 source) Abnormal uterine and vaginal bleeding, unspecified; Translations: [Abnormal uterine and vaginal bleeding, unspecified] Onset: 07-29-2024 Chronic Other screening for suspected conditions (not [...] Patient tolerance: tolerated well, no immediate complications [facility] HCG ( test) Ql (U)O rdered By: Jaymie Hatch on 07-29-2024 Interpretation and review of laboratory results Normal [facility] Work Phone: Preg Test, Ur Negative Negative [facility] Health care Work Phone: [employer] Work Phone: Jarrett 07-29-2024 L - -------- Specimen: [id number] Received: 07/31/24 Status: LUIS Guidry Num: [id number] Spec Type: Surgical Subm Dr: Kolton Ortega Tissues: A Endometrium - Biopsy (ENDOMETRIAL BX) Procedures: HE/2, Gross/Micro L4 -------- Age/ Patient Sex Location Account Attending Physician -------- Giovanna Perez 53/F [place] [id number] Kolton Ortega -------- SPEC NUM: [id number] RECD: 07/31/24 STATUS: LUIS GUIDRY NUM: [id number] AIDEE: 07/29/24- SUBM DR: Kolton Ortega ENTERED: 07/31/[address]: Chet [place] SPEC TYPE: Surgical DEPT: RENÉ JULES ENTERED BY: [id number] RECV BY: [id number] ORDERED: HE/2, Gross/Micro L4 ORDERED: HE/2, Gross/Micro L4 Pathological Diagnosis Endometrium, biopsy: Superficial fragments of benign endometrium/endocervi x, unremarkable. Clinical Information Dysfunctional uterine bleeding Gross Description Part A is received in formalin labeled with the patients name, date of , and EMBX are phan-pink, focally erythematous, delicate tissue fragments, 0.7 x 0.5 x 0.1 cm in aggregate. The specimen is filtered and entirely submitted in a single cassette. (1, ns, BS A) CPT Codes 44557 -------- -------- Specimen: [id number] Received: 07/31/24 Status: LUIS Guidry Num: [id number] Spec Type: Surgical Subm Dr: Kolton Ortega Tissues: A Endometrium - Biopsy (ENDOMETRIAL BX) Procedures: HE/2, Gross/Micro L4 -------- Patient: MelviGiovanna [id number] (Continued) -------- Signed (signature on file) Efe Flores MD 08/01/24 1620 Normal [facility] IGP,APTIMA HPV,AGE GDLNon AGE GDLN ACOG TESTING Note . [facility] Comment on above: TESTS RESULT FLAG UN ITS REF RANGE LAB Clinician Provided Cytology Information Source.............Cervix;Endocervix No. of containers..01 ThinPrep Vial Age Algo ACOG Elvia... 30-65 01 FLAG LEGEND: L-Low Normal,H-High Normal,LL-Alert Low,HH-Alert High <-Panic Low,>-Panic High,A-Abnormal,AA-Critical Abnormal Performed at: 01 =[facility] [place] [address] Camila Casper MD, HPV APTIMA Negative Negative [facility] e Comment on above: This nucleic acid am plification test detects fourteen high- risk HPV types (16,18,31,33,35,39,45,51,52,56,58,59,66,68) without differentiation. Performed at: = - [address], [place] [id number] Secretary To The Vice President: Camila Casper MD, Phone: [phone] Performed at: - [address] [id number] Secretary To The Vice President: Camila Casper MD, Phone: [phone] IGP, APTIMA HPV, RFX 16/18,45 Note . [facility] Comment on above: TESTS RESULT FLAG UN ITS REF RANGE LAB DIAGNOSIS: 02 NEGATIVE FOR INTRAEPITHELIAL LESION OR MALIGNANCY. Specimen adequacy: 02 Satisfactory for evaluation. Endocervical and/or squamous metaplastic cells (endocervical component) are present. Performed by: 02 Minal Herrmann, Digital Field Service Technician (ASCP) . 02 Note: Note 02 The [...] Low,>-Panic High,A-Abnormal,AA-Critical Abnormal Performed at: 02 [facility] [address] [place] [address] Camila Casper MD, BRUSH-SPATULA CERVIX ENDOCERVIX [facility] MG MAMM SCREEN 3D EULOGIO CADon 05-13-2022 MG MAMM SCREEN 3D EULOGIO CAD Patient: GIOVANNA PEREZ Exam Date: 05/13/2022 : 1970 Gender:F Ordering : DR LIZ DILLARD . Admission #: [id number] Family : DR SARAY QUINTERO Order #: [id number] CLICK HERE TO VIEW EXAM RADIOLOGY REPORT [...] Family Cancers None LOCATION: [facility] BREAST COMPOSITION: Extremely dense, which [...] Cuello MD on 05/13/2022 at 11:38 Normal [facility] Outside Colonoscopyon 2020 Outside Colonoscopy [id number] .00CD:[address] [facility] Lab Reportson 04-01-2021 Lab Reports [id number] .00CD:[address] [facility] Consent for Procedure/Surger yon 03-18-2021 Consent for Procedure/Surgery [id number] .00CD:[address] [facility] Letter [facility] March 18, 2021 Liz Dillard, [address] [facility] [place] [address] [place] [address] Re: GIOVANNA PEREZ Date of : 1970 Thank you for your referral of Giovanna perez who was seen on consultation on Mar 16, 2021, for positive occult stool. Testing is planned for further evaluation. I have enclosed my consultation note for your review. I will be happy to follow Giovanna. Sincerely, Gomez Madsen MD General Surgery [facility] Ambulatory Clinical Summaryo 03-16-2021 Ambulatory Clinical Summary {[id number]}CD:[id number] Normal [facility] Patient Educationon 03-16-20 21 Patient [...] slower pace than normal. ? Eat soft, vfrc-wy-gduzjh foods. ? Take fzir-ole-ebuzpor or prescription medicines only as told by [...] 02/14/2005 Document Revised: 04/25/2018 Document Reviewed: 09/13/2016 [employer] Patient Education ? 2020 [employer] Colonoscopy, Adult A colonoscopy is an [...] including vitamins, herbs, eye drops, creams, and ynld-vfl-zdonewb medicines. ? Any problems you or family [...] drink clear liquid (more content not included)... Normal [facility] Physician Referralon 021 Physician Referral [id number]. 00CD:[address] [facility] Vital Signs Date Time Vital Sign Value Performing Clinician Whitney cardoso 07-29-2024 12:01-0500 Body mass index (BMI) [Ratio] 23.93 kg/m2 [employer] DO Work Phone: [facility] 07-29-2024 12:01-0500 Body weight 69.31 kg [employer] DO Work Phone: [facility] 07-29-2024 12:01-0500 Diastolic blood pressure 78 mm[Hg] [employer] DO Work Phone: [facility] 07-29-2024 12:01-0500 Systolic blood pressure 124 mm[Hg] Kolton Shannon DO Work Phone: [facility] 05-13-2024 13:26-0400 Body mass index (BMI) [Ratio] 23.34 kg/m2 Kolton Shannon DO Work Phone: [facility] 05-13-2024 13:26-0400 Body weight 67.59 kg Kolton Shannon DO Work Phone: [facility] 05-13-2024 13:26-0400 Diastolic blood pressure 80 mm[Hg] Kolton Shannon DO Work Phone: [facility] 05-13-2024 13:26-0400 Systolic blood pressure 130 mm[Hg] Kolton Shannon DO Work Phone: [facility] Healthcare Encounters Encounter Date Encounter Type Care Provider Facility Start: 07-29-2024 End: 07-29-2024 Departed Referred Liz Dillard MD Work Phone: [facility] [place] Work Phone: Start: 07-29-2024 End: 07-29-2024 Patient encounter procedure Kolton Shannon DO Work Phone: [facility] Comment on above: Dysfunctional uterin e bleeding Start: 07-29-2024 End: 07-29-2024 ambulatory Liz Dillard MD Work Phone: [facility] Work Phone: Start: 06-10-2024 End: 06-10-2024 Office [...] Breast cancer screening by mammogram; Osteoporosis, post-menopausal ([facility]) Start: 05-13-2024 End: 05-13-2024 ambulatory KOLTON ORTEGA [...] AM EST Procedure Visit [facility] [address] [place], [place] [address] [address] Kolton Ortega DO [address] [place] [address] [facility] Start: 06-10-2024 End: 06-10-2024 Patient encounter procedure 06/10/2024 3:00 PM EST Office Visit [facility] [address] [id number] Kolton Ortega, DO [address] [place] [address] Arrived [facility] Comment on above: Arrived Start: 05-13-2024 End: 05-13-2025 DXA Skeletal system Views for bone density DEXA bone density Imaging Routine Osteoporosis, post-menopausal ([facility]) Expected: 05/13/2024 (Approximate), Expires: 05/13/2025 [facility] Comment on above: Expected: 05/13/2024 (Approximate), Expires: 05/13/2025 Start: 05-13-2024 End: 07-13-2025 MG Breast - bilateral Screening Bilateral screening mammogram Imaging Routine Breast cancer screening by mammogram Expected: 05/13/2024 (Approximate), Expires: 07/13/2025 [facility] Work Phone: Comment on above: Expected: 05/13/2024 (Approximate), Expires: 07/13/2025 Start: 05-13-2024 End: 05-13-2024 Patient encounter procedure 05/13/2024 1:00 PM EDT Office Visit [facility] [address] [phone] Kolton Ortega, DO [address] [place] [address] Arrived [facility] Comment on above: Arrived THIN PREP TIS PAP AN D HR HPV DNA THIN PREP TIS PAP AND HR HPV DNA Pathology and Cytology Routine Well woman exam with routine gynecological exam Ordered: 05/13/2024 [facility] Comment on above: Ordered: 05/13/2024 Payers Date Payer Category Payer Self-pay 2023 Private Health Insurance [employer] [id number] 1970 Unknown [id number] 1970 Unknown [id number] .[id number] 1970 Unknown [id number] .2.1259 1970 Unknown [id number] .2.1259 1970 Unknown [id number] .2.1259 1960 Unknown [id number] Unknown [id number] .2.531 Social History Date Type Detail Facility Tobacco smoking status KYIS Tobacco smoking consumption unknown [facility] Start: 1970 Sex assigned at Not on file [facility] Gender identity Not on file [facility] are Start: 07-31-2024 Sex Female (finding) [facility] Start: 1970 Sex Assigned At Female F [facility] History of Present illness Narrative 07-29-2024 [...] nursing note reviewed. Exam conducted with a printed products assembler present. Vitals: Estimated body mass index is [...] nursing note reviewed. Exam conducted with a printed products assembler present. Vitals: Estimated body mass index is [...] nursing note reviewed. Exam conducted with a printed products assembler present. Vitals: Estimated body mass index is [...] mammogram Bilateral screening mammogram 3. Osteoporosis, post-menopausal ([facility]) M81.0 DEXA bone density Annual: Patient presents today for an annual exam. Patient states she is doing well and has no complaints. Pap was obtained without difficulty and patient given mammogram order and DEXA Scan order to have scheduled/obtained. Patient voiced she was having labs drawn through [facility] and she had pellets inserted. Patient will call office and inform PA what pellets were used. Orders Placed This Encounter Procedures Bilateral screening mammogram DEXA bone density Follow Up: Patient is to return in one year for annual unless needed otherwise. Documented by Tosha Cabral LPN on behalf of: Kolton Ortega DO documented in this encounter [facility] Clinical Note 03-16-2021 Note Date & Type [...] and Brother. Hypertension: Mother, Sister and Brother. [facility] Comment on above: Result Comment: Elec tronically Signed By: MARINE LEW, Gomez Aguero\Date and Time Signed: 03/16/21 13:36 EDT Evaluation note Note Date & Type Note Facility Evaluation note Diagnosis Well woman exam with routine gynecological exam Routine gynecological examination Breast cancer screening by mammogram Osteoporosis, post-menopausal (CMS/HCC) Senile osteoporosis documented in this encounter [facility] Evaluation note Note Date & Type Note Facility Evaluation note Diagnosis Encounter to discuss test results Other specified counseling Dysfunctional uterine bleeding Other disorder of menstruation and other abnormal bleeding from female genital tract documented in this encounter [facility] Evaluation note Note Date & Type Note Facility Evaluation note Diagnosis Dysfunctional uterine bleeding Other disorder of menstruation and other abnormal bleeding from female genital tract documented in this encounter [facility] Healthcare Evaluation note Note Date & Type Note Facility Evaluation note No assessment information availa [facility] Work Phone: Summary Purpose Family History No [...] section and content) DATE CREATED AUTHOR 04/07/2021 [facility] DATE CREATED AUTHOR AUTHOR'S ORGANIZ ATION 05/18/2022 [facility] DATE CREATED AUTHOR AUTHOR'S ORGANIZ ATION 2024 [facility] EPIC DATE CREATED AUTHOR AUTHOR'S ORGANIZ ATION 08/05/2024 [facility] Care Teams (unrecognized sec tion and content) Brim Edge Trimmer Relationship Specialty Start Date End Date Liz Dillard MD [address] [place] [address] PCP - General Family Medicine 10/30/23 Brim Edge Trimmer Relationship Specialty Start Date End Date Liz Dillard MD [address] [place] [address] PCP - General Family Medicine 10/30/23 Brim Edge Trimmer Relationship Specialty Start Date End Date Liz Dillard MD [address] [place] [address] PCP - General Family Medicine 10/30/23 Brim Edge Trimmer Relationship Specialty Start Date End Date Liz Dillard MD [address] [place] [address] PCP - General [facility] 10/30/23 Brim Edge Trimmer Relationship Specialty Start Date End Date Liz Dillard MD [address] [facility] [place] [address] PCP - General Family [facility] 10/30/23 Brim Edge Trimmer Relationship Specialty Start Date End Date Liz Dillard MD [address] [place] [address] PCP - General Family Medicine 10/30/23 Team [...] BE BASED ON THE PRIMARY CLINICAL RECORDS. [facility] [employer] [facility] provides no warranty or guarantee of the accuracy or completeness of information in this document.
== END 2025-02-17 10:13 | disposition home or self-care (01) ==
PROVIDERS: PCP Family Medicine; Visit Provider Obstetrics & Gynecology
DX: Z12.31 Encounter for screening mammogram for malignant neoplasm of breast (principal)
CPT/HCPCS: 77063; 77067